=== PATIENT | female | born 1990 | race Caucasian/White ===

== ENCOUNTER 2023-01-02 11:49 | Emergency (ER) | payer OTHER ==
[~2023-01-02] VITALS: Ht 157.5 cm; Wt 77.6 kg
[2023-01-02 12:06] VITALS: BP 141/95
[2023-01-02] MEDS ORDERED: CEPH500 PO (13:04)
== END 2023-01-02 13:20 | disposition home or self-care (01) ==
LOC: ER 11:49
DX: L03.221 Cellulitis of neck (principal)
CPT/HCPCS: J1885